=== PATIENT | female | born 1990 | race Hispanic/Latino ===

== ENCOUNTER 2016-07-01 11:10 | Emergency (ER) | payer MEDICAID ==
[2016-07-01 11:10] VITALS: BMI 32.5
[2016-07-01 11:20] VITALS: BP 128/86; PULSE 82; RESP 17; TEMP 97.4; O2SAT 98
--- NOTE | 2016-07-01 12:00 | C.PDOC ---
History Of Present Illness L LOWER WISDOM TOOTH PAIN SINCE YEST. MULT PRIOR ER VISITS FOR VARIOUS DENTAL COMPLAINTS. NO SWELL, FEVER. EXAM HEENT +NONERUPTED L LOWER WISDOM TOOTH W LOCAL TEND; NO ABSCESS; NO FACIAL SWELL Time Seen by Provider: 07/01/16 11:58 Chief Complaint (Nursing): Dental Pain History Per: Patient History/Exam Limitations: no limitations Onset/Duration Of Symptoms: Days Current Symptoms Are (Timing): Still Present Quality: Positive for: "Pain" Recent travel outside of the [place]: No Past Medical History Reviewed: Historical Data, Nursing Documentation, Vital Signs Vital Signs: Last Vital Signs Temp 97.4 F L 07/01/16 11:19 Pulse 82 07/01/16 11:19 Resp 17 07/01/16 11:19 BP 128/86 07/01/16 11:19 Pulse Ox 98 07/01/16 12:40 - Medical History PMH: Anxiety (WITH ANGER), Asthma, Back Problems, Bipolar Disorder, CAD, Depression, Post Traumatic Stress Disorder Surgical History: Back Surgery Family History: States: Unknown Family Hx - Social History Hx Tobacco Use: Yes Hx Alcohol Use: No Hx Substance Use: No - Immunization History Hx Tetanus Toxoid Vaccination: No Hx Influenza Vaccination: Yes Hx Pneumococcal Vaccination: No Review Of Systems Except As Marked, All Systems Reviewed And Found Negative. Constitutional: Negative for: Fever, Chills ENT: Positive for: Mouth Pain (L LOWER WISDOMEN TOOTH PAIN ). Negative for: Throat Pain Respiratory: Negative for: Cough Skin: Negative for: Rash Physical Exam - Physical Exam Appears: Non-toxic, No Acute Distress Skin: Normal Color, Warm, Dry Head: Atraumatic, Normacephalic, No Swelling Eye(s): bilateral: Normal Inspection, PERRL, EOMI Ear(s): Bilateral: Normal Nose: Normal Oral Mucosa: Moist Teeth: Other (+NONERUPTED L LOWER WISDOM TOOTH W LOCAL TEND; NO ABSCESS; NO FACIAL SWELL) Gingiva: No Swelling, No Bleeding, No Abscess Throat: Normal, No Erythema, No Exudate, No Drooling Neck: Supple Neurological/Psych: Oriented x3, Normal Speech, Normal Cognition ED Course And Treatment O2 Sat by Pulse Oximetry: 98 (RA) Pulse Ox Interpretation: Normal Progress - Re-Evaluation Re-evaluation Note: 04/10/17 12:00 [place] RX REVIEWED 06/27/2016 DIAZEPAM 5 MG TABLET 60.0 30 05/21/2016 DIAZEPAM 5 MG TABLET 60.0 30 05/12/2016 OXYCODONE-ACETAMINOPHEN 5-325 20.0 04/09/2016 DIAZEPAM 5 MG TABLET 60.0 30 03/08/2016 DIAZEPAM 5 MG TABLET 60.0 30 02/16/2016 OXYCODONE-ACETAMINOPHEN 5-325 10.0 - Data Reviewed Data Reviewed: Old records Disposition Counseled Patient/Family Regarding: Diagnosis, Need For Followup, Rx Given - Disposition Referrals: Marry Corbin DMD [Staff Provider] - Disposition: HOME/ ROUTINE Disposition Time: 12:39 Condition: GOOD Prescriptions: Penicillin VK [Pen-Vee K] 2 tab PO BID #28 tab Acetaminophen/Codeine [Tylenol/Codeine 300 MG/30 MG] 2 tab PO Q6H #20 tab Instructions: Toothache (ED) - Clinical Impression Clinical Impression: Toothache - Scribe Statement The provider has reviewed the documentation as recorded by the Trenton Juarez Provider Attestation: All medical record entries made by the Trenton were at my direction and personally dictated by me. I have reviewed the chart and agree that the record accurately reflects my personal performance of the history, physical exam, medical decision making, and the department course for this patient. I have also personally directed, reviewed, and agree with the discharge instructions and disposition.
== END 2016-07-01 12:45 | disposition home or self-care (01) ==
LOC: C.ER 11:10
DX: K08.89 Other specified disorders of teeth and supporting structures (principal)

== ENCOUNTER 2016-07-08 16:27 | Emergency (ER) | payer MEDICAID ==
[2016-07-08 16:27] VITALS: BMI 32.5
[2016-07-08 17:16] VITALS: RESP 18; TEMP 98.1
[2016-07-08] MEDS ORDERED: Oxycodone/Acetaminophen 5/325 mg Tab PO STA (18:21)
[2016-07-08] MEDS ORDERED: Oxycodone/Acetaminophen 5/325 mg Tab ONE (18:44)
--- NOTE | 2016-07-08 18:56 | C.PDOC ---
History Of Present Illness 25 year old female patient presents to the emergency room for the evaluation of diffuse back pain since this morning. Patient reports that the pain started after a bow flex machine fell on the patient's back. Patient denies any nausea, vomiting, diarrhea, incontinences, parasthesia, weakness, numbness, neurovascular deficits, any changes in the movement of bilateral upper and lower extremities, any urinary symptoms, neck pain, head trauma/LOC, headaches, dizziness, or any other complaints. Time Seen by Provider: 07/08/16 17:34 Chief Complaint (Nursing): Back Pain History Per: Patient History/Exam Limitations: no limitations Onset/Duration Of Symptoms: Hrs Current Symptoms Are (Timing): Still Present Quality Of Discomfort: "Pain" Severity: Mild Previous Symptoms: None Associated Symptoms: denies: Incontinence, New Weakness, New Numbness Exacerbating Factor(s): Nothing Recent travel outside of the [place]: No Past Medical History Reviewed: Historical Data, Nursing Documentation, Vital Signs Vital Signs: Last Vital Signs Temp 98.1 F 07/08/16 17:14 Pulse 77 07/08/16 17:14 Resp 18 07/08/16 17:14 BP 128/85 07/08/16 17:14 Pulse Ox 96 07/08/16 19:00 - Medical History PMH: Anxiety (WITH ANGER), Asthma, Back Problems, Bipolar Disorder, CAD, Depression, Post Traumatic Stress Disorder Denies: Diabetes, HIV, HTN, Seizures, Sexually Transmitted Disease Surgical History: Back Surgery Family History: States: Unknown Family Hx - Social History Hx Tobacco Use: Yes Hx Alcohol Use: Yes Hx Substance Use: No - Immunization History Hx Tetanus Toxoid Vaccination: No Hx Influenza Vaccination: Yes Hx Pneumococcal Vaccination: No Review Of Systems Except As Marked, All Systems Reviewed And Found Negative. Constitutional: Negative for: Fever, Chills Cardiovascular: Negative for: Chest Pain Respiratory: Negative for: Shortness of Breath Gastrointestinal: Negative for: Nausea, Vomiting, Diarrhea Genitourinary: Negative for: Dysuria, Frequency, Incontinence, Hematuria Musculoskeletal: Positive for: Back Pain (Diffuse back pain). Negative for: Neck Pain Neurological: Negative for: Weakness, Numbness, Headache, Dizziness Physical Exam - Physical Exam Appears: Well, Non-toxic Skin: Warm, Dry, Other (Superficial lineal scratches along the thoracic spine) Head: Atraumatic, Normacephalic, No Tenderness, No Swelling Eye(s): bilateral: Normal Inspection Ear(s): Bilateral: Normal Nose: Normal, No Epistaxis, No Deformity, No Tenderness Oral Mucosa: Moist Tongue: Normal Appearing, No Swelling Lips: Normal Appearing, No Swelling Throat: Normal Neck: Normal, Normal ROM, No Midline Cervical Tenderness, No Paracervical Tenderness, Supple Chest: Symmetrical, No Deformity, No Tenderness Cardiovascular: Rhythm Regular Respiratory: Normal Breath Sounds, No Rales, No Rhonchi, No Wheezing Gastrointestinal/Abdominal: Soft, No Tenderness, No Distention, No Guarding, No Rebound Back: Muscle Spasm, Paraspinal Tenderness (Diffuse lumbar paraspinal tenderness with mild muscle spasms. ), No Other (No midline tenderness.) Extremity: Normal ROM, No Tenderness, No Deformity, No Swelling Neurological/Psych: Oriented x3, Normal Speech, Normal Cognition, Normal Motor, Normal Sensation, Normal Reflexes Gait: Steady ED Course And Treatment O2 Sat by Pulse Oximetry: 96 Pulse Ox Interpretation: Normal - Other Rad L-spine X-Ray: Interpreted by Me, Viewed By Me Interpretation: no acute fx or sublux Progress Note: On re-eavluation, pt is afebrile, hemodynamicaly stable. Non- toxic. Ambulatory in ED with stable gait. Abd: benign. Back: (-) midline tenderness, no deformity. neurologicaly intact. xray review and appears noraml study. Pt has clinical findings c/w lower back contusion. Pt advised. ref. to F/u with PMD In 2-3 days for re-eval. return if any new changes. Disposition Counseled Patient/Family Regarding: Studies Performed, Diagnosis, Need For Followup, Rx Given - Disposition Referrals: Zhang Augustine MD [Medical Doctor] - Disposition Time: 18:30 Condition: STABLE Additional Instructions: LIght duty, avoid physical activity for 1 week Take medication as need for pain Follow up with PMD in 2-3 days for re-evaluation. Return to Ed if any worsening or new changes. Prescriptions: Methocarbamol [Robaxin] 500 mg PO TID #14 tab traMADol [Ultram] 50 mg PO TID #7 tab Instructions: Back Pain (ED), Muscle Spasm (ED) - Clinical Impression Clinical Impression: Contusion of lower back - Scribe Statement The provider has reviewed the documentation as recorded by the Scribe Pa Valle All medical record entries made by the Trenton were at my direction and personally dictated by me. I have reviewed the chart and agree that the record accurately reflects my personal performance of the history, physical exam, medical decision making, and the department course for this patient. I have also personally directed, reviewed, and agree with the discharge instructions and disposition.
[2016-07-08 19:22] VITALS: BP 122/70; PULSE 75; O2SAT 98
--- NOTE | 2016-07-09 10:17 | RAD ---
PROCEDURE: Radiographs of the Lumbar Spine. HISTORY: pain COMPARISON: 12/07/2015 FINDINGS: BONES: The T12 mild anterior spondylosis with trace disc height loss and/or Schmorl's node indentation bordering this ridging is similar Straightening of the normal lumbar lordosis. The previously referenced "Suspect minimal subclinical dextro scoliosis centered to the thoraco lumbar junction" appearance is similar The lumbosacral spinal AP canal dimension appear shallow -as before DISC SPACES: Unremarkable. OTHER FINDINGS: None. IMPRESSION: No interval fracture or interval pathology appreciated T12 anterior superior endplate spondylosis. Other findings as above
== END 2016-07-08 19:25 | disposition home or self-care (01) ==
LOC: C.ER 16:27
DX: S30.0XXA Contusion of lower back and pelvis, initial encounter (principal); W20.8XXA Other cause of strike by thrown, projected or falling object, initial encounter; Y93.89 Activity, other specified; Y92.89 Other specified places as the place of occurrence of the external cause

== ENCOUNTER 2016-10-16 06:00 | Emergency (ER) | payer MEDICAID ==
[2016-10-16 06:30] VITALS: O2SAT 100
[2016-10-16 06:51] LABS: BASO # 0.1 K/uL (0.0-0.2); BASO % 0.8 % (0.0-2.0); EOS # 0.5 K/uL (0.0-0.7); HEMATOCRIT 40.8 % (34.0-47.0); LYMPH # 3.5 K/uL (1.0-4.3); LYMPH % 37.8 % (20.0-40.0); MEAN CELL VOLUME 99.7 fL (81.0-99.0); MEAN CORPUSCULAR HEMOGLOBIN 33.8 pg (27.0-31.0); MEAN CORPUSCULAR HGB CONC 33.9 g/dL (33.0-37.0); MONO # 0.5 K/uL (0.0-0.8); MONO % 4.9 % (0.0-10.0); RED CELL DISTRIBUTION WIDTH 13.5 % (11.5-14.5); WHITE BLOOD COUNT 9.4 K/uL (4.8-10.8)
[2016-10-16 06:54] LABS: CHLORIDE 107 mmol/L (98-107); POTASSIUM 3.9 mmol/L (3.6-5.2); SODIUM 142 mmol/L (132-148)
[2016-10-16 06:56] LABS: GFR AFRICAN-AMERICAN > 60
[2016-10-16 06:57] LABS: ALB/GLOB RATIO 1.2 (1.0-2.1); ALKALINE PHOSPHATASE 59 U/L (38-126); ALT/SGPT 54 U/L (9-52); AST/SGOT 45 U/L (14-36); BILIRUBIN,TOTAL 0.6 mg/dL (0.2-1.3); BLOOD UREA NITROGEN 3 mg/dL (7-17); CALCIUM 8.9 mg/dl (8.6-10.4); CARBON DIOXIDE 20 mmol/L (22-30); GLUCOSE,RANDOM 96 mg/dL (65-105); TOTAL PROTEIN 6.8 g/dL (6.3-8.3)
--- NOTE | 2016-10-16 09:09 | C.PDOC ---
History Of Present Illness 25-year-old female, presents to the emergency department with complains of left sided chest pain and "lump" under left breast. Patient states pain is persistent in nature, reproducible and is unable to sleep because of it. Denies any nausea/vomiting, shortness of breath, fevers, chills, or any other associated symptoms. No other complaints at this time. Time Seen by Provider: 10/16/16 07:10 Chief Complaint (Nursing): Chest Pain History Per: Patient History/Exam Limitations: no limitations Past Medical History Reviewed: Historical Data, Nursing Documentation, Vital Signs Vital Signs: Last Vital Signs Temp 98.0 F 10/16/16 09:22 Pulse 82 10/16/16 09:22 Resp 19 10/16/16 09:22 BP 102/70 10/16/16 09:22 Pulse Ox 100 10/16/16 09:22 - Medical History PMH: Anxiety (WITH ANGER), Asthma, Back Problems, Bipolar Disorder, CAD, Depression, Post Traumatic Stress Disorder Denies: Diabetes, HIV, HTN, Seizures, Sexually Transmitted Disease Surgical History: Back Surgery Family History: States: No Known Family Hx - Social History Hx Tobacco Use: Yes Hx Alcohol Use: Yes Hx Substance Use: No - Immunization History Hx Tetanus Toxoid Vaccination: No Hx Influenza Vaccination: Yes Hx Pneumococcal Vaccination: No Review Of Systems Except As Marked, All Systems Reviewed And Found Negative. Constitutional: Negative for: Fever, Chills Cardiovascular: Positive for: Chest Pain Respiratory: Negative for: Shortness of Breath Gastrointestinal: Negative for: Vomiting Neurological: Negative for: Weakness, Numbness Physical Exam - Physical Exam Appears: Non-toxic, No Acute Distress, Other (obese) Skin: Warm, Dry, No Rash Head: Atraumatic, Normacephalic Eye(s): bilateral: Normal Inspection Nose: Normal Oral Mucosa: Moist Lips: Normal Appearing Neck: Normal ROM Chest: Tenderness (left upper chest wall) Cardiovascular: Rhythm Regular, No Murmur Respiratory: Normal Breath Sounds, No Accessory Muscle Use Extremity: Normal ROM Neurological/Psych: Oriented x3 ED Course And Treatment - Laboratory Results Result Diagrams: 10/16/16 06:43 10/16/16 06:43 ECG: Interpreted By Me, Viewed By Me ECG Rhythm: Sinus Rhythm ECG Interpretation: No Acute Changes O2 Sat by Pulse Oximetry: 100 (on RA) Pulse Ox Interpretation: Normal Disposition Counseled Patient/Family Regarding: Studies Performed, Diagnosis, Need For Followup - Disposition Disposition: HOME/ ROUTINE Disposition Time: 09:07 Condition: STABLE Additional Instructions: Take Valium and NSAIDS twice a day for pain and inflammation. Follow up with your doctor or our clinic. Instructions: Costochondritis (ED) Forms: [employer] ([place]ian) - POA Present On Arrival: None - Clinical Impression Clinical Impression: Chest wall pain - Scribe Statement The provider has reviewed the documentation as recorded by the Scribe (Boubacar Ken) All medical record entries made by the Scribe were at my direction and personally dictated by me. I have reviewed the chart and agree that the record accurately reflects my personal performance of the history, physical exam, medical decision making, and the department course for this patient. I have also personally directed, reviewed, and agree with the discharge instructions and disposition.
[2016-10-16 09:23] VITALS: BP 102/70; PULSE 82; RESP 19; TEMP 98
--- NOTE | 2016-10-19 07:14 | CARD ---
APPROVED REPORT EKG Measurement Heart [id number] HI [id number] [id number] <Conclusion> Normal sinus rhythm Low voltage QRS Cannot rule out Inferior infarct, age undetermined Abnormal ECG
== END 2016-10-16 09:23 | disposition home or self-care (01) ==
LOC: C.ER 06:00
DX: R07.89 Other chest pain (principal)

== ENCOUNTER 2017-05-15 14:32 | Emergency (ER) | payer MEDICAID ==
[2017-05-15 14:32] VITALS: BMI 32.5
[2017-05-15 14:41] VITALS: O2SAT 98
--- NOTE | 2017-05-15 15:27 | C.PDOC ---
History Of Present Illness 26 yo female w/PMHx of bipolar, chronic lower back pain, presents to the ER complaining of right sided neck pain and lower back pain which gradually developed since yesterday. Patient states, yesterday she was helping her friend move and she was lifting heavy objects. Patient describes her pain as a localized "burning sensation" over Right sided neck area and diffuse lower back aching pain, non-radiating, pain is worse with movement. Otherwise, pt denies direct trauma or injury, denies fever, chills, headache, dizziness, CP, SOB, dyspnea, abd. apin, N/V, UTI sx, saddle anesthesia, incontinence, denies weakness, sensory or vascular deficits to B/L UEs and LEs. Patient is also requesting evaluation of a rash under her bilateral breasts which has been present for the past few weeks. Patient noted mild odor today. Denies known sick contact, denies exposure to known allergen, denies throat swelling or tightness, drooling, dyspnea, wheezing or any other active complaints. Ambulate to Ed for evaluation, not in any apparent distress. Time Seen by Provider: 05/15/17 14:49 Chief Complaint (Nursing): Abnormal Skin Integrity History Per: Patient History/Exam Limitations: no limitations Onset/Duration Of Symptoms: Days Current Symptoms Are (Timing): Still Present Severity: Moderate Past Medical History Reviewed: Historical Data, Nursing Documentation, Vital Signs Vital Signs: Last Vital Signs Temp 97.5 F L 05/15/17 14:38 Pulse 100 H 05/15/17 14:38 Resp 16 05/15/17 14:38 BP 130/84 05/15/17 14:38 Pulse Ox 98 05/15/17 16:02 - Medical History PMH: Anxiety (WITH ANGER), Asthma, Back Problems, Bipolar Disorder, CAD, Depression, Post Traumatic Stress Disorder Denies: Diabetes, HIV, HTN, Seizures, Sexually Transmitted Disease Surgical History: Back Surgery Family History: States: No Known Family Hx - Social History Hx Tobacco Use: Yes Hx Alcohol Use: Yes Hx Substance Use: No - Immunization History Hx Tetanus Toxoid Vaccination: No Hx Influenza Vaccination: Yes Hx Pneumococcal Vaccination: No Review Of Systems Except As Marked, All Systems Reviewed And Found Negative. Musculoskeletal: Positive for: Neck Pain (right-sided neck pain), Back Pain ( lower back pain) Neurological: Negative for: Weakness, Numbness Physical Exam - Physical Exam Appears: Non-toxic, No Acute Distress Skin: Normal Color, Warm, Rash (localized erythematous maculopapular rash under bilateral breasts, noted mild clear oozing with odor. No edema, no cellulitis or proximal streaking, no flactulance.) Head: Normacephalic Eye(s): bilateral: PERRL Ear(s): Bilateral: Normal Nose: No Flaring, No Discharge Oral Mucosa: Moist, No Drooling Tongue: Normal Appearing Throat: No Drooling Neck: Normal ROM, Trachea Midline, No Midline Cervical Tenderness, Paracervical Tenderness (Right paracervical tenderness with moderate diffuse Right trap. muscle spasm.), No Step Off Deformity, Supple Chest: Symmetrical Cardiovascular: Rhythm Regular Respiratory: No Decreased Breath Sounds, No Accessory Muscle Use, No Rales, No Rhonchi, No Wheezing Gastrointestinal/Abdominal: Soft, No Tenderness, No Distention, No Guarding Back: No CVA Tenderness, Paraspinal Tenderness (diffuse paralumbar tenderness) Extremity: Normal ROM, No Pedal Edema, No Deformity, No Swelling Neurological/Psych: Oriented x3, Normal Speech, Normal Motor, Normal Sensation, Normal Reflexes ED Course And Treatment O2 Sat by Pulse Oximetry: 98 (RA) Pulse Ox Interpretation: Normal Progress Note: On re-evaluation, pt is afebrile, hemodynamicaly stable. non- toxic. Ambulatory in ED with stable gait. Skin: (+)exam c/w rash under B/L breast likely sec. to tinea corporis. No cellulitis, no edema. neck: Supple, (+ ) Right sided tenderness with significant trapezium muscle spasm. No midline tenderness or step offs, (-) JVD. Lungs: CTA B/L, BS equal B/L. Abd: soft, (- ) guarding, (-) rebound. back: (-) CVA tenderness. Neuorlogicaly intact. Pt advised. ref. to f/u with PMD, Derm in 2-3 days for re-eval. return to ED if anyw orsening or new changes. Disposition Counseled Patient/Family Regarding: Diagnosis, Need For Followup, Rx Given - Disposition Referrals: [facility] [Outside] Disposition: HOME/ ROUTINE Disposition Time: 15:20 Condition: STABLE Additional Instructions: Light duty, avoid any physical activity for 1 week Take medication as prescribed Follow up with PMD and Dermatology in 2-3 days for re-evaluation. return to ED if any worsening or new changes. Prescriptions: Clotrimazole 1% Cream [Lotrimin 1%] 1 inch TP BID #1 tube Doxycycline Hyclate [Doryx] 100 mg PO BID #14 cap Methocarbamol [Robaxin] 500 mg PO TID #14 tab Prednisone [Deltasone] 40 mg PO DAILY #6 tablet traMADol [Ultram] 50 mg PO TID #7 tab Instructions: Lumbar Muscle Strain, Neck Sprain (DC), Jock Itch (DC) Forms: [employer] (Kinyarwanda) - Clinical Impression Clinical Impression: Cervical strain, Lumbar strain, Tinea corporis, Cellulitis - PA / MIS SPECIALIST / Resident Statement MD/DO has reviewed & agrees with the documentation as recorded. - Scribe Statement The provider has reviewed the documentation as recorded by the Trenton Soriano Provider Attestation All medical record entries made by the Trenton were at my direction and personally dictated by me. I have reviewed the chart and agree that the record accurately reflects my personal performance of the history, physical exam, medical decision making, and the department course for this patient. I have also personally directed, reviewed, and agree with the discharge instructions and disposition.
[2017-05-15 16:20] VITALS: BP 110/61; PULSE 96; RESP 18; TEMP 98
== END 2017-05-15 16:23 | disposition home or self-care (01) ==
LOC: C.ER 14:32
DX: S16.1XXA Strain of muscle, fascia and tendon at neck level, initial encounter (principal); S39.012A Strain of muscle, fascia and tendon of lower back, initial encounter; X50.0XXA Overexertion from strenuous movement or load, initial encounter; B35.4 Tinea corporis; L03.90 Cellulitis, unspecified; Z72.0 Tobacco use

== ENCOUNTER 2017-06-15 15:04 | Emergency (ER) | payer MEDICAID ==
[2017-06-15 15:04] VITALS: BMI 32.5
[2017-06-15 15:15] VITALS: BP 120/88; PULSE 90; RESP 16; TEMP 98; O2SAT 98
--- NOTE | 2017-06-15 15:33 | C.PDOC ---
History Of Present Illness 26 year old female presents to the ED with complaints of right sided neck pain and low back pain for approximately one week after shoveling snow. Patient has a history of chronic neck/back pain, however does not have pain management physician. She was previously seen in our ED at the end of April and prescribed Prednisone, Tramadol, and Robaxin. She states she initially improved , however once the medications ran out her pain returned. She denies new injuries/falls, sensory changes, urinary retention, bowel/bladder incontinence, abdominal pain. Time Seen by Provider: 06/15/17 15:19 Chief Complaint (Nursing): Back Pain History Per: Patient History/Exam Limitations: no limitations Onset/Duration Of Symptoms: Days (x 7 ) Current Symptoms Are (Timing): Still Present Quality Of Discomfort: "Pain" Previous Symptoms: Back Pain (low), Neck Pain (right sided), Chronic Pain Associated Symptoms: None. denies: Incontinence, New Weakness, New Numbness Exacerbating Factor(s): Nothing, Movement, Other Past Medical History Reviewed: Historical Data, Nursing Documentation, Vital Signs Vital Signs: Last Vital Signs Temp 98 F 06/15/17 15:13 Pulse 90 06/15/17 15:13 Resp 16 06/15/17 15:13 BP 120/88 06/15/17 15:13 Pulse Ox 98 06/15/17 16:44 - Medical History PMH: Anxiety (WITH ANGER), Asthma, Back Problems, Bipolar Disorder, CAD, Depression, Post Traumatic Stress Disorder, Chronic Pain (back and neck ) Surgical History: Back Surgery Family History: States: No Known Family Hx - Social History Hx Tobacco Use: Yes Hx Alcohol Use: Yes Hx Substance Use: No - Immunization History Hx Tetanus Toxoid Vaccination: No Hx Influenza Vaccination: Yes Hx Pneumococcal Vaccination: No Review Of Systems Except As Marked, All Systems Reviewed And Found Negative. Gastrointestinal: Negative for: Abdominal Pain Genitourinary: Negative for: Dysuria, Hematuria Musculoskeletal: Positive for: Neck Pain (right sided), Back Pain (lower) Skin: Negative for: Rash Neurological: Negative for: Weakness, Numbness Physical Exam - Physical Exam Appears: Well, Non-toxic, Other (Mild pain) Skin: Normal Color, Warm, Dry Eye(s): bilateral: Normal Inspection Oral Mucosa: Moist Neck: Other (right lateral neck tender to palpation, palpable muscle spasm) Cardiovascular: Rhythm Regular Respiratory: Normal Breath Sounds, No Rales, No Rhonchi, No Wheezing Back: No CVA Tenderness, No Vertebral Tenderness, Paraspinal Tenderness (Lumbar) Extremity: Normal ROM Neurological/Psych: Oriented x3, Normal Motor, Normal Sensation Gait: Steady ED Course And Treatment O2 Sat by Pulse Oximetry: 98 (RA) Pulse Ox Interpretation: Normal Progress Note: Patient has NSAID allergy, states her throat swells up, and Tramadol no longer working. PO Vicodin, Prednisone and Vicodin given in ED. Explained to patient I am unable to given Rx for narcotics however, and that she needs to follow up with pain management for further eval and treatment. She was given Rxs for Prednisone and Flexeril, and instructed to follow up with pain management. She understands she should return to ED if symptoms worsen. Reassessment Condition: Improved Disposition Counseled Patient/Family Regarding: Diagnosis, Need For Followup, Rx Given - Disposition Referrals: Zhang Augustine MD [Medical Doctor] - Darshan Quiñones MD [Staff Provider] - Disposition: HOME/ ROUTINE Disposition Time: 16:00 Condition: STABLE Additional Instructions: FOLLOW UP WITH PAIN MANAGEMENT WITHIN 1 WEEK USE MEDICATIONS NEEDED RETURN TO ER IF SYMPTOMS WORSEN Prescriptions: Cyclobenzaprine [Flexeril] 10 mg PO BID PRN #20 tab PRN Reason: Muscle Spasm predniSONE [predniSONE Tab] 40 mg PO DAILY #8 tab Instructions: Low Back Pain (DC), Chronic Neck Pain (DC) Forms: [employer] (Spanish) Print Language: IRISH - Clinical Impression Clinical Impression: Neck pain, Low back pain, Chronic pain - Scribe Statement The provider has reviewed the documentation as recorded by the Trenton Cohen All medical record entries made by the Trenton were at my direction and personally dictated by me. I have reviewed the chart and agree that the record accurately reflects my personal performance of the history, physical exam, medical decision making, and the department course for this patient. I have also personally directed, reviewed, and agree with the discharge instructions and disposition.
[2017-06-15] MEDS ORDERED: Hydrocodone/Acetaminophen 5 mg /300 mg Tab PO STA (15:41)
[2017-06-15] MEDS ORDERED: Hydrocodone/Acetaminophen 5 mg /300 mg Tab PO ONE (15:59)
== END 2017-06-15 16:01 | disposition home or self-care (01) ==
LOC: C.ER 15:04
DX: G89.29 Other chronic pain (principal); M54.5 Low back pain; M54.2 Cervicalgia

== ENCOUNTER 2017-07-17 15:43 | Emergency (ER) | payer MEDICAID ==
[2017-07-17 15:44] VITALS: BMI 32.5
[2017-07-17 15:48] VITALS: BP 133/93; PULSE 92; RESP 20; TEMP 98.5; O2SAT 98
[2017-07-17] MEDS ORDERED: Oxycodone/Acetaminophen 5/325 mg Tab PO STA (16:58)
--- NOTE | 2017-07-17 17:02 | C.PDOC ---
History Of Present Illness 26 y/o female presents to the ER complaining of dental pain which began today after had 4 fillings done in the upper teeth today. Patient states that the pain radiates to the ears. Patient reports that she is not taking her abx as instructed. She denies having fever, chills, and other complaints. Time Seen by Provider: 07/17/17 15:55 Chief Complaint (Nursing): Dental Pain History Per: Patient History/Exam Limitations: no limitations Onset/Duration Of Symptoms: Hrs Current Symptoms Are (Timing): Still Present Severity: Moderate Quality: Positive for: Sharp Recent travel outside of the [place]: No Past Medical History Reviewed: Historical Data, Nursing Documentation, Vital Signs Vital Signs: Last Vital Signs Temp 98.5 F 07/17/17 15:46 Pulse 92 H 07/17/17 15:46 Resp 20 07/17/17 15:46 BP 133/93 H 07/17/17 15:46 Pulse Ox 98 07/17/17 17:29 - Medical History PMH: Anxiety (WITH ANGER), Asthma, Back Problems, Bipolar Disorder, CAD, Depression, Post Traumatic Stress Disorder, Chronic Pain (back and neck ) Denies: Diabetes, HIV, HTN, Seizures, Sexually Transmitted Disease Surgical History: Back Surgery Family History: States: No Known Family Hx - Social History Hx Tobacco Use: Yes Hx Alcohol Use: Yes Hx Substance Use: No - Immunization History Hx Tetanus Toxoid Vaccination: No Hx Influenza Vaccination: Yes Hx Pneumococcal Vaccination: No Review Of Systems Except As Marked, All Systems Reviewed And Found Negative. Constitutional: Negative for: Fever, Chills ENT: Positive for: Mouth Pain Physical Exam - Physical Exam Appears: Non-toxic, No Acute Distress Skin: Normal Color, Warm, No Rash Head: Atraumatic, Normacephalic Eye(s): bilateral: Normal Inspection Ear(s): Bilateral: Normal Nose: Normal Oral Mucosa: Moist Tongue: Normal Appearing Lips: Normal Appearing Teeth: Caries, No Tender To Palpation, Other (poor dentition) Gingiva: Normal Appearing, No Swelling Throat: Normal, No Erythema, No Exudate Neck: No Midline Cervical Tenderness, No Paracervical Tenderness, Supple Chest: Symmetrical Neurological/Psych: Oriented x3, Normal Speech, Normal Cranial Nerves, Normal Motor Gait: Steady ED Course And Treatment O2 Sat by Pulse Oximetry: 98 (RA) Pulse Ox Interpretation: Normal Medical Decision Making Medical Decision Making: Plan: --Percocet PO Prescription monitoring service was checked and patient was found to have recent RX of Tylenol #4 and Hydrocodone this month. Patient was instructed that narcotic RX cannot be given. Patient was instructed to continue taking the antibiotics and follow up with the Dentist within 1-2 days without fail. Return if worsened. Disposition - Disposition Referrals: Musa Magallon, SRIRAM [Staff Provider] - Disposition: HOME/ ROUTINE Disposition Time: 17:28 Condition: GOOD Additional Instructions: Follow up with the Dentist within 1-2 days without fail. return if worsened. Prescriptions: Acetaminophen [Tylenol] 325 mg PO Q6 PRN #30 tab PRN Reason: Pain, Moderate (4-7) Instructions: Tooth Decay, Adult Forms: [facility] (Serbian) - Clinical Impression Clinical Impression: Toothache, Dental caries - PA / SCOOP OPERATOR / Resident Statement MD/DO has reviewed & agrees with the documentation as recorded. - Scribe Statement The provider has reviewed the documentation as recorded by the Trenton Soriano Provider Attestation All medical record entries made by the Pacoibe were at my direction and personally dictated by me. I have reviewed the chart and agree that the record accurately reflects my personal performance of the history, physical exam, medical decision making, and the department course for this patient. I have also personally directed, reviewed, and agree with the discharge instructions and disposition.
[2017-07-17] MEDS ORDERED: Oxycodone/Acetaminophen 5/325 mg Tab ONE (17:03)
== END 2017-07-17 17:30 | disposition home or self-care (01) ==
LOC: C.ER 15:43
DX: K02.9 Dental caries, unspecified (principal); K08.89 Other specified disorders of teeth and supporting structures; F17.210 Nicotine dependence, cigarettes, uncomplicated

== ENCOUNTER 2017-11-10 15:41 | Emergency (ER) | payer MEDICAID ==
[2017-11-10 15:41] VITALS: BMI 32.5
[2017-11-10 15:54] VITALS: BP 125/83; PULSE 91; RESP 18; TEMP 98; O2SAT 99
--- NOTE | 2017-11-10 16:08 | C.PDOC ---
History Of Present Illness 26 year old female with PMHx of bipolar, chronic lower back pain presents to the ED c/o acute exacerbation of chronic back pain that started yesterday. Patient states she misstep and twisted her back. Patient also states she twisted her left ankle but has been able to walk. Patient reports she iced and elevated her ankle with relief to her pain. Patient states she tried her usual pain medication with minimal relief. Patient denies abdominal pain, bowel incontinence, weakness, numbness, saddle anesthesia. PMHx of bipolar, chronic lower back pain - [facility] Time Seen by Provider: 11/10/17 15:57 Chief Complaint (Nursing): Back Pain History Per: Patient History/Exam Limitations: no limitations Onset/Duration Of Symptoms: Days (1) Injury Occurred (Timing): Days Ago: (1) Location Of Injury: Right: Back, Left: Back Severity: Mild Recent travel outside of the [place]: No Additional History Per: Patient Past Medical History Reviewed: Historical Data, Nursing Documentation, Vital Signs Vital Signs: Last Vital Signs Temp 98.0 F 11/10/17 15:49 Pulse 91 H 11/10/17 15:49 Resp 18 11/10/17 15:49 BP 125/83 11/10/17 15:49 Pulse Ox 99 11/10/17 16:35 - Medical History PMH: Anxiety (WITH ANGER), Asthma, Back Problems, Bipolar Disorder, CAD, Depression, Post Traumatic Stress Disorder, Chronic Pain (back and neck ) Denies: Diabetes, HIV, HTN, Seizures, Sexually Transmitted Disease Surgical History: Back Surgery Family History: States: Unknown Family Hx - Social History Hx Tobacco Use: Yes Hx Alcohol Use: Yes Hx Substance Use: No - Immunization History Hx Tetanus Toxoid Vaccination: No Hx Influenza Vaccination: Yes Hx Pneumococcal Vaccination: No Review Of Systems Constitutional: Negative for: Fever, Chills Cardiovascular: Negative for: Chest Pain Respiratory: Negative for: Shortness of Breath Gastrointestinal: Negative for: Nausea, Vomiting, Abdominal Pain Musculoskeletal: Positive for: Back Pain Skin: Negative for: Rash Neurological: Negative for: Weakness, Numbness Physical Exam - Physical Exam Appears: Non-toxic, No Acute Distress Skin: Normal Color, Warm, Dry Head: Atraumatic, Normacephalic Eye(s): bilateral: Normal Inspection Neck: Normal ROM, Supple Chest: Symmetrical Cardiovascular: Rhythm Regular Respiratory: Normal Breath Sounds, No Rales, No Rhonchi, No Wheezing Gastrointestinal/Abdominal: Soft, No Tenderness, No Guarding, No Rebound Back: No Vertebral Tenderness, Muscle Spasm (diffuse lower back), Other ( limited full extension due to pain) Extremity: Normal ROM, No Tenderness, No Swelling Neurological/Psych: Oriented x3, Normal Speech, Normal Motor, Normal Sensation Gait: Steady ED Course And Treatment O2 Sat by Pulse Oximetry: 99 (ON RA) Pulse Ox Interpretation: Normal Progress - Re-Evaluation Re-evaluation Note: 11/10/17 16:11 [facility] REVIEWED - Data Reviewed Data Reviewed: Old records, Other - Continuity of Care Discussed pt. case with clinical education consultant/specialty: Other ([facility]) Medical Decision Making Medical Decision Making: Plan: * Lidoderm 2 ea TD * Percocet 2 tab PO Disposition Counseled Patient/Family Regarding: Diagnosis, Need For Followup - Disposition Referrals: YOUR,PMD [Other] Disposition: HOME/ ROUTINE Disposition Time: 16:29 Condition: IMPROVED Prescriptions: Cyclobenzaprine [Flexeril] 10 mg PO TID #15 tab Dexamethasone [Decadron] 12 mg PO ONCE #2 tablet Lidocaine 5% [Lidoderm] 2 patch TOP ONCE PRN #20 patch MDD 3 PATCHES PRN Reason: Pain, Moderate (4-7) Instructions: Chronic Pain (DC) Forms: [facility] (Pakistani) - Clinical Impression Clinical Impression: Acute exacerbation of chronic low back pain - Scribe Statement The provider has reviewed the documentation as recorded by the Scribe Riki Davis All medical record entries made by the Scribe were at my direction and personally dictated by me. I have reviewed the chart and agree that the record accurately reflects my personal performance of the history, physical exam, medical decision making, and the department course for this patient. I have also personally directed, reviewed, and agree with the discharge instructions and disposition.
[2017-11-10] MEDS ORDERED: Oxycodone/Acetaminophen 5/325 mg Tab PO STA (16:29)
[2017-11-10] MEDS ORDERED: Oxycodone/Acetaminophen 5/325 mg Tab ONE (16:34)
[2017-11-10] MEDS ORDERED: Lidocaine 5% Patch TD STA (16:35)
[2017-11-10] MEDS ORDERED: Lidocaine 5% Patch TD ONE (16:52)
== END 2017-11-10 17:00 | disposition home or self-care (01) ==
LOC: C.ER 15:41
DX: G89.29 Other chronic pain (principal); M54.5 Low back pain

== ENCOUNTER 2017-12-06 18:17 | Emergency (ER) | payer MEDICAID ==
[2017-12-06 18:36] VITALS: BMI 36.0
[2017-12-06 18:40] VITALS: BP 127/88; PULSE 80; RESP 18; TEMP 98.6; O2SAT 100
--- NOTE | 2017-12-06 21:17 | C.PDOC ---
History Of Present Illness 26 year old female presents to the ED complaining of pain to the top of her head status post hitting her head with the armor at home. Associated symptoms include dizziness and mild nausea. She reports she bent to pick something up and when she got up she struck her head. She denies any LOC or change in vision. Chief Complaint (Nursing): Dizziness/Lightheaded History Per: Patient History/Exam Limitations: no limitations Onset/Duration Of Symptoms: Mins Current Symptoms Are (Timing): Still Present Fall Associated With With Symptoms: No Past Medical History Reviewed: Historical Data, Nursing Documentation, Vital Signs Vital Signs: Last Vital Signs Temp 98.6 F 12/06/17 18:36 Pulse 80 12/06/17 18:36 Resp 18 12/06/17 18:36 BP 127/88 12/06/17 18:36 Pulse Ox 100 12/06/17 23:41 - Medical History PMH: Anxiety (WITH ANGER), Asthma, Back Problems, Bipolar Disorder, CAD, Depression, Post Traumatic Stress Disorder, Chronic Pain (back and neck ) Denies: Diabetes, HIV, HTN, Seizures, Sexually Transmitted Disease Surgical History: Back Surgery Family History: States: No Known Family Hx - Social History Hx Tobacco Use: Yes Hx Alcohol Use: Yes Hx Substance Use: No - Immunization History Hx Tetanus Toxoid Vaccination: No Hx Influenza Vaccination: No Hx Pneumococcal Vaccination: No Review Of Systems Except As Marked, All Systems Reviewed And Found Negative. Eyes: Negative for: Vision Change Gastrointestinal: Positive for: Nausea. Negative for: Vomiting Neurological: Positive for: Headache, Dizziness Physical Exam - Physical Exam Appears: Non-toxic Skin: Warm, Dry Head: Normacephalic Nose: Normal Oral Mucosa: Moist Neck: Normal ROM Chest: Symmetrical Cardiovascular: Rhythm Regular Respiratory: Normal Breath Sounds Gastrointestinal/Abdominal: Soft, No Tenderness Extremity: Normal ROM Neurological/Psych: Oriented x3, Normal Speech Gait: Steady ED Course And Treatment O2 Sat by Pulse Oximetry: 100 (RA) Pulse Ox Interpretation: Normal Medical Decision Making Medical Decision Making: Orders: - CT head - POC Urine Preg Patient wishes to leave ER because she declines to wait. The patient declines further testing as recommended for medical evaluation. This action is against my medical advice to the patient and with informed refusal. The patient was told that this evaluation is necessary and a full explanation of the rationale was given. The risks of refusing were explained to the patient and include, but are not limited to, worsening of known or currently unknown conditions, permanent disability and from undiagnosed or untreated conditions. The patient has the capacity to make this decision and has the capacity to understand the clinical situation and my explanation of the risks of refusing this test. The patient voluntarily accepts these risks. The patient was given the opportunity to ask questions and reconsider. Disposition - Disposition Referrals: [facility] Elisha Khadijah, [Non-Staff] - Disposition: AGAINST MEDICAL ADVICE Disposition Time: 20:00 Condition: UNKNOWN Additional Instructions: DIMA SHUKLA, thank you for letting us take care of you today. Your provider was Chris Monk DO and you were treated for HEAD INJURY DIZZINESS. The emergency medical care you received today was directed at your acute symptoms. If you were prescribed any medication, please fill it and take as directed. It may take several days for your symptoms to resolve. Return to the Emergency Department if your symptoms worsen, do not improve, or if you have any other problems. Please contact your doctor or call one of the physicians/clinics you have been referred to that are listed on the Patient Visit Information form that is included in your discharge packet. Bring any paperwork you were given at discharge with you along with any medications you are taking to your follow up visit. Our treatment cannot replace ongoing medical care by a primary care provider outside of the emergency department. Thank you for allowing the [facility] team to be part of your care today. YOU SIGNED OUT AMA FROM THE EMERGENCY ROOM. Follow up with your primary care doctor in the morning for re-evaluation and further management. Instructions: Minor Head Injury (DC) Forms: [facility] (Greek) - Clinical Impression Clinical Impression: Head injury - Scribe Statement The provider has reviewed the documentation as recorded by the Scribe Beth Blanton All medical record entries made by the Scribe were at my direction and personally dictated by me. I have reviewed the chart and agree that the record accurately reflects my personal performance of the history, physical exam, medical decision making, and the department course for this patient. I have also personally directed, reviewed, and agree with the discharge instructions and disposition.
== END 2017-12-06 19:59 | disposition left against medical advice (07) ==
LOC: C.ER 18:17
DX: S09.90XA Unspecified injury of head, initial encounter (principal); W22.8XXA Striking against or struck by other objects, initial encounter; Y92.009 Unspecified place in unspecified non-institutional (private) residence as the place of occurrence of the external cause; Z72.0 Tobacco use; I25.10 Atherosclerotic heart disease of native coronary artery without angina pectoris